=== PATIENT | male | born 1995 | race Caucasian/White ===

== ENCOUNTER 2024-09-05 09:38 | Emergency (ER) | payer OTHER ==
--- NOTE | 2024-09-05 10:32 | RAD REPORT ---
EXAM: Chest Single View HISTORY: 29 years Male CHEST PAIN COMPARISON: None. FINDINGS: LUNGS/PLEURA: The lungs are clear. No pleural effusions or pneumothorax. No pulmonary edema. CARDIAC/MEDIASTINUM: The cardiac silhouette is within normal limits. UPPER ABDOMEN: No significant abnormality. BONES: No acute abnormality. LINES/TUBES/OTHER: N/A IMPRESSION: No evidence of acute cardiopulmonary disease.
--- NOTE | 2024-09-05 10:32 | RAD REPORT ---
EXAMINATION: UPPER EXTREMITY VENOUS UNILATE CLINICAL INDICATION: Male, 29 years old.PAIN TECHNIQUE: Multiplanar grayscale and color Doppler images were obtained in a upper extremity venous ultrasound. Spectral analysis of the Doppler waveforms were performed. COMPARISON: No prior exams FINDINGS: The internal jugular vein, subclavian vein, axillary vein, basilic vein, brachial vein, cephalic vein , radial vein, and ulnar vein were evaluated and patent. The brachial vein, cephalic vein, radial vein, and ulnar veins were compressible and patent. IMPRESSION: No evidence of deep venous thrombosis in the left upper extremity.
[2024-09-05 10:54] LABS: Absolute Eosinophils 0.1 K/uL (0-0.5); Absolute Lymphocytes (CBC) 1.4 K/uL (0.7-4.9); Absolute Monocytes 0.4 K/uL (0.1-1.3); Absolute Neutrophil 2.3 K/uL (1.8-8.0); Basophils % 0.5 % (0-1.3); Eosinophils % 2.2 % (0-4.4); Hematocrit 43.7 % (39.6-49.0); Hemoglobin 15.3 g/dL (13.6-17.9); Lymphocytes % 33.5 % (15.3-44.8); MCH 31.1 pg (27.0-35.0); MCHC 35.1 g/dL (32.0-36.0); MCV 88.7 fL (80-100); MPV 10.1 fL (7.6-11.3); Monocytes % 9.1 % (3.3-12.3); Neutrophils % 54.7 % (41.7-73.7); Nucleated Red Blood Cells % 0.1 % (0-0); Platelets 142 thou/uL (152-406); RBC Red Blood Cell Count 4.92 M/uL (4.33-5.43)
[2024-09-05 10:58] LABS: ALT/SGPT 68 U/L (16-61); AST/SGOT 31 U/L (15-37); Albumin 4.2 g/dL (3.4-5.0); Albumin/Globulin Ratio 1.2 (1.1-1.8); Alkaline Phosphatase 59 U/L (45-117); Anion Gap 5.8 mEq/L (5.0-15.0); BUN Blood Urea Nitrogen 11 mg/dL (7-18); Bicarbonate 30 mEq/L (21-32); Bilirubin Direct 0.2 mg/dL (0-0.2); Bilirubin Indirect, Calculated 0.4 mg/dL (0.2-0.8); Bilirubin Total 0.6 mg/dL (0.2-1.0); Globulin 3.5 g/dL (2.3-3.5); Glomerular Filtration Rate 91 ml/min (=/>90); Glucose Level 100 mg/dL (74-106); Magnesium 2.1 mg/dL (1.6-2.4); Potassium 3.8 mEq/L (3.5-5.1); Protein, Total 7.7 g/dL (6.4-8.2); Sodium Level 137 mEq/L (136-145)
[2024-09-05 11:02] LABS: Troponin High Sensitivity < 3.0 pg/mL (<58.9)
[2024-09-05 11:21] LABS: Influenza A Ag Negative; Influenza B Ag Negative; SARS-CoV-2 Antigen Rapid Res Negative (Negative)
--- NOTE | 2024-09-05 11:40 | EDPHYS ---
Physician Documentation [facility] Name: Sergey Aguiar Age: 29 yrs Sex: Male : 1995 Arrival Date: 09/05/2024 Time: 09:38 Bed 15 Private MD: ED Physician Elsie Alan HPI: 09/05 09:49 This 29 yrs old Male presents to ER via Ambulatory with complaints of Chest Pain, sb4 Numbness Of Arm. 09:54 Presents today with concerns of chest pain and left arm tingling. States that he has sb4 had bilateral upper neck pain for a few months now, tightness in his chest for 2 weeks now, and the tingling in his arm began this morning. He denies any medical history. States he feels like he may be getting sick, but denies any cough, shortness of breath, nausea, vomiting, fever, chills. Denies any smoking history. Historical: - Allergies: 09:48 No Known Allergies; ap3 - Home Meds: 09:48 None [Active]; ap3 - PMHx: 09:48 None; ap3 - Immunization history:: Client reports having NOT received the Covid vaccine. Flu vaccine is not up to date. - Infectious Disease History:: Denies. - Social history:: Smoking status: Patient denies any tobacco usage or history of. Patient uses alcohol, on a daily basis. admits to "couple of beers" a day. ROS: 09:54 Constitutional: Negative for fever, chills, and weight loss, sb4 09:54 Constitutional: Positive for malaise, 09:54 Cardiovascular: Positive for chest pain, 09:54 Neuro: Positive for numbness, 09:54 All other systems are negative, Exam: 09:57 Constitutional: This is a well developed, well nourished patient who is awake, alert, sb4 and in no acute distress. Head/Face: Normocephalic, atraumatic. Eyes: Extra-ocular motions intact. Periorbital areas with no swelling, redness, or edema. ENT: Mucous membranes moist. Cardiovascular: Regular rate and rhythm with a normal S1 and S2. Respiratory: No increased work of breathing, no retractions or nasal flaring. Abdomen/GI: Soft, non-tender, no distension. Skin: Warm, dry with normal turgor. Normal color with no rashes, no lesions, and no evidence of cellulitis. Vital Signs: 09:47 BP 147 / 89; Pulse 56; Resp 17; Temp 98.1; Pulse Ox 100% ; Weight 95.25 kg; Height 6 ap3 ft. 0 in. ; Pain 5/10; 10:00 BP 126 / 88; Pulse 60; Resp 18; Pulse Ox 100% ; db 11:15 BP 114 / 80; Pulse 55; Resp 16; Pulse Ox 100% ; db 12:00 BP 128 / 68; Pulse 60; Resp 16; Pulse Ox 99% on R/A; db 09:47 Body Mass Index 28.48 (95.25 kg, 182.88 cm) ap3 09:47 Pain Scale: Adult ap3 MDM: 09:45 Medical Screening Exam initiated sb4 11:40 Data reviewed: vital signs, nurses notes, lab test result(s), EKG, radiologic studies, sb4 and as a result, I will discharge patient. Historians other than the Patient: Spouse/Significant Other: . Counseling: I had a detailed discussion with the patient and/or guardian regarding the historical points, exam findings, and any diagnostic results supporting the discharge/admit diagnosis, the presence of at least one elevated blood pressure reading (>120/80) during this emergency department visit, lab results, radiology results, the need for outpatient follow up, for definitive care, to return to the emergency department if symptoms worsen or persist or if there are any questions or concerns that arise at home. 11:40 Special discussion: Based on the patient's history, exam, and Dx evaluation, there is sb4 no indication for emergent intervention or inpatient Tx. It is understood by the patient/guardian that if the Sx's persist or worsen they need to return immediately for re-evaluation. 09/05 09:48 Order name: Basic Metabolic Panel; Complete Time: 11:13 sb4 09/05 09:48 Order name: CBC with Diff; Complete Time: 10:57 sb4 09/05 09:48 Order name: LFT's; Complete Time: 11:13 sb4 09/05 09:48 Order name: Magnesium; Complete Time: 11:13 sb4 09/05 09:48 Order name: Troponin HS; Complete Time: 11:13 sb4 09/05 09:48 Order name: COVID-19 Ag + Flu A+B Ag; Complete Time: 11:23 sb4 09/05 09:48 Order name: XRAY Chest (1 view); Complete Time: 10:33 sb4 09/05 09:56 Order name: UPPER EXTREMITY VENOUS UNILATE; Complete Time: 10:33 EDMS 09/05 09:48 Order name: Cardiac monitoring; Complete Time: 09:50 sb4 09/05 09:48 Order name: EKG - Nurse/Tech; Complete Time: 10:07 sb4 09/05 09:48 Order name: IV Saline Lock; Complete Time: 10:32 sb4 09/05 09:48 Order name: Labs collected and sent; Complete Time: 10:32 sb4 09/05 09:48 Order name: O2 Per Protocol; Complete Time: 09:50 sb4 09/05 09:48 Order name: O2 Sat Monitoring; Complete Time: 09:50 sb4 EC:06 Rate is 50 beats/min. Rhythm is regular, Sinus bradycardia. MN interval is normal at sb4 132 msec. QRS interval is normal at 102 msec. QT interval is normal at 412 msec. No Q waves. T waves are Normal. No ST changes noted. Clinical impression: No evidence of ischemia. Interpreted by me. Reviewed by me. Administered Medications: No medications were administered Disposition Summary: 09/05/24 11:39 Discharge Ordered Notes: Location: Home sb4 Problem: new sb4 Symptoms: have improved sb4 Condition: Stable sb4 Diagnosis - Chest pain, unspecified sb4 Followup: sb4 - With: Private Physician - When: 1 week - Reason: Recheck today's complaints, Re-evaluation by your physician Discharge Instructions: - Discharge Summary Sheet sb4 - Pain Without a Known Cause sb4 - Nonspecific Chest Pain, Adult, [id number] sb4 - How to Take Your Blood Pressure sb4 Forms: - Patient Portal Instructions sb4 - Leadership Thank You Letter sb4 Addendum: 09/07/2024 07:08 Co-signature as Attending Physician, Elsie Alan MD I agree with the assessment and g b1 plan of care. I reviewed the patient's care provided by the Advanced Practice Provider and agree with the diagnosis and treatment plan. Signatures: Dispatcher [employer] Cara Griffin RN RN ap3 Karyn Bone PA-C PA-C sb4 Elsie Alan MD MD gb1 Corrections: (The following items were deleted from the chart) 09/05 09:48 09:48 BASIC METABOLIC PANEL+C.LAB.BRZ ordered. EDMS EDMS 09:48 09:48 CBC+H.LAB.BRZ ordered. EDMS EDMS 09:48 09:48 HEPATIC FUNCTION+C.LAB.BRZ ordered. EDMS EDMS 09:48 09:48 MAGNESIUM+C.LAB.BRZ ordered. EDMS EDMS 09:48 09:48 Troponin High Sensitivity+C.LAB.BRZ ordered. EDMS EDMS 09:48 09:48 COVID-19 Ag + Flu A+B Ag+I.LAB.BRZ ordered. EDMS EDMS 09:49 09:49 Chest Single View+RAD.RAD.BRZ ordered. EDMS EDMS 09:49 09:49 Extremity Venous Uni Ltd+US.RAD.BRZ ordered. EDMS EDMS
--- NOTE | 2024-09-05 11:40 | ER ---
Nurse's Notes [facility] Name: Sergey Aguiar Age: 29 yrs Sex: Male : 1995 Arrival Date: 09/05/2024 Time: 09:38 Bed 15 Private MD: Diagnosis: Chest pain, unspecified Presentation: 09/05 09:47 Chief complaint: Patient states: he has been having neck pain for approx 2 months, ap3 chest pain for 2 months and then this morning he started having left arm pain/numbness/tingly feeling with the chest pain. patient currently rates the pain as a 5/10 on the pain scale. Coronavirus screen: At this time, the client does not indicate any symptoms associated with coronavirus-19. Ebola Screen: No symptoms or risks identified at this time. Initial Sepsis Screen: Does the patient meet any 2 criteria? No. Patient's initial sepsis screen is negative. Does the patient have a suspected source of infection? No. Patient's initial sepsis screen is negative. Risk Assessment: Do you want to hurt yourself or someone else? Patient reports no desire to harm self or others. Onset of symptoms was September 05, 2024. 09:47 Method Of Arrival: Ambulatory ap3 09:47 Acuity: WILLIAMS 2 ap3 Triage Assessment: 09:49 General: Appears in no apparent distress. Behavior is calm, cooperative, appropriate ap3 for age. Pain: Complains of pain in chest, left arm and neck Pain currently is 5 out of 10 on a pain scale. Neuro: Level of Consciousness is awake, alert, obeys commands, Oriented to person, place, time, situation, Appropriate for age. Cardiovascular: Reports chest pain. Respiratory: Airway is patent Respiratory effort is even, unlabored, Respiratory pattern is regular, symmetrical. Historical: - Allergies: 09:48 No Known Allergies; ap3 - Home Meds: 09:48 None [Active]; ap3 - PMHx: 09:48 None; ap3 - Immunization history:: Client reports having NOT received the Covid vaccine. Flu vaccine is not up to date. - Infectious Disease History:: Denies. - Social history:: Smoking status: Patient denies any tobacco usage or history of. Patient uses alcohol, on a daily basis. admits to "couple of beers" a day. Screenin:50 [facility] ED Fall Risk Assessment (Adult) History of falling in the last 3 months, ap3 including since admission No falls in past 3 months (0 pts) Confusion or Disorientation No (0 pts) Intoxicated or Sedated No (0 pts) Impaired Gait No (0 pts) Mobility Assist Device Used No (0 pt) Altered Elimination No (0 pt) Score/Fall Risk Level 0 - 2 = Low Risk Oriented to surroundings, Maintained a safe environment, Educated pt \\T\\ family on fall prevention, incl call for assistance when getting out of bed, Assessed \\T\\ reinforced patient's understanding of fall precautions, Hourly rounding (assess needs \\T\\ fall precautionary measures) done, Used ambulatory aids as needed (educated on \\T\\ assisted with). Abuse screen: Denies threats or abuse. Nutritional screening: No deficits noted. Tuberculosis screening: No symptoms or risk factors identified. Assessment: 10:00 Reassessment: Patient appears in no apparent distress at this time. Patient and/or db family updated on plan of care and expected duration. Pain level reassessed. Patient is alert, oriented x 3, equal unlabored respirations, skin warm/dry/pink. General: Appears in no apparent distress. comfortable, Behavior is calm, cooperative. Pain: Complains of pain in chest Pain radiates to left arm Pain began gradually, 1 WEEK. Neuro: Level of Consciousness is awake, alert, obeys commands, Oriented to person, place, time, situation. 12:19 Reassessment: Patient appears in no apparent distress at this time. Patient and/or db family updated on plan of care and expected duration. Pain level reassessed. Patient is alert, oriented x 3, equal unlabored respirations, skin warm/dry/pink. Vital Signs: 09:47 BP 147 / 89; Pulse 56; Resp 17; Temp 98.1; Pulse Ox 100% ; Weight 95.25 kg; Height 6 ap3 ft. 0 in. ; Pain 5/10; 10:00 BP 126 / 88; Pulse 60; Resp 18; Pulse Ox 100% ; db 11:15 BP 114 / 80; Pulse 55; Resp 16; Pulse Ox 100% ; db 12:00 BP 128 / 68; Pulse 60; Resp 16; Pulse Ox 99% on R/A; db 09:47 Body Mass Index 28.48 (95.25 kg, 182.88 cm) ap3 09:47 Pain Scale: Adult ap3 ED Course: 09:38 Patient arrived in ED. im 09:39 Karyn Bone PA-C is PHCP. sb4 09:39 Elsie Alan MD is Attending Physician. sb4 09:44 Susana Pierson, RN is Primary Nurse. db 09:48 Triage completed. ap3 09:49 Patient has correct armband on for positive identification. Bed in low position. Call ap3 light in reach. Side rails up X 1. Provided Education on: call light education . Client placed on continuous cardiac and pulse oximetry monitoring. NIBP monitoring applied. night monitor on. Pulse ox on. NIBP on. 09:50 Arm band placed on right wrist. ap3 09:50 Patient maintains SpO2 saturation greater than 95% on room air. ap3 10:00 Pillow given. db 10:13 XRAY Chest (1 view) In Process Unspecified. EDMS 10:26 UPPER EXTREMITY VENOUS UNILATE In Process Unspecified. EDMS 10:30 Initial lab(s) drawn, by ED staff, sent to lab. Inserted saline lock: 20 gauge in right db antecubital area, using aseptic technique. Blood collected. Flushed with 10 mL NS. 10:32 COVID-19 Ag + Flu A+B Ag Sent. cc6 10:32 Basic Metabolic Panel Sent. cc6 10:32 CBC with Diff Sent. cc6 10:32 LFT's Sent. cc6 10:32 Magnesium Sent. cc6 10:32 Troponin HS Sent. cc6 12:19 No provider procedures requiring assistance completed. IV discontinued, intact, db bleeding controlled, No redness/swelling at site. Administered Medications: No medications were administered Medication: 10:00 VIS not applicable for this client. db Outcome: 11:39 Discharge ordered by . sb4 12:19 Discharged to home ambulatory, db 12:19 Condition: stable 12:19 Discharge instructions given to patient, Instructed on discharge instructions, follow up and referral plans. 12:20 Patient left the ED. db Signatures: Dispatcher [employer] EDMS Cara Cherry RN RN ap3 Susana Pierson, RN RN db Karyn Bone PA-C PA-C sb4 Maggy Harry im Dori Mccallum cc6
[2024-09-05 12:24] VITALS: TEMP 98.1
[2024-09-05 12:29] VITALS: BP 128/68; O2SAT 99
--- NOTE | 2024-09-07 12:43 | EKG ---
Test Date: 2024-09-05 Test Time: 10:03:50 Global Program Director: RHETT MEASUREMENT RESULTS: Intervals: Rate: 50 CA: 132 QRSD: 102 QT: 412 QTc: 375 [place]: P: 59 CA: 132 QRS: 65 T: 55 INTERPRETIVE STATEMENTS: Sinus bradycardia Otherwise normal ECG No previous ECG available for comparison Electronically Signed On 09-07-24 12:37:43 CDT by Greg Tam
== END 2024-09-05 12:20 | disposition home or self-care (01) ==
LOC: ER 09:38
DX: R07.9 Chest pain, unspecified (principal); R53.81 Other malaise; R20.0 Anesthesia of skin; Z11.52 Encounter for screening for COVID-19
CPT/HCPCS: 36415; 71045; 80048; 80076; 83735; 84484; 85025; 87428; 93005; 93971; 99284